=== PATIENT | female | born 1995 | race Caucasian/White ===

== ENCOUNTER 2017-10-29 01:46 | Emergency (ER) | payer OTHER ==
[~2017-10-29] VITALS: Ht 167.6 cm; Wt 69.7 kg
[2017-10-29 01:50] VITALS: BP 141/70
--- NOTE | 2017-10-29 03:00 | ED.ADGEN ---
Past History Past Medical History: Seizure Past Surgical History: No Surgical History Alcohol Use: None Drug Use: None Adult General Chief Complaint Chief Complaint ".. I guess I had a break through seizure...I have not drank for a while .... but my grand mother has fatal brain cancer... So I drank tonight and that use it makes they have seizures sometimes..".. " I sometimes have seizures even if I take my meds right... and I also had a fight with my boyfriend.. so I had drank about 7 beers..." HPI HPI Patient is a 22 year old female who presents with above hx and complaints chronic clonic seizure.. Duration of seizure is unknown. She has been compliant with her meds of Oxcarbazepine 60 mg bid, Lamotrigine 300 mg bid, and Onf1 15 mg bid. Pt. denies any trauma, travel, fever, specific ill contacts or recent changes in meds. Patient has had intermittent tonic-clonic seizures since age 7 after a spider bite and then again age 10 when she developed encephalitis. . She states she does have a somewhat typical migraine headache currently. Patient also states she has headaches after her tonic-clonic seizures. Review of Systems Review of Systems Constitutional: Denies fever or chills [] Eyes: Denies change in visual acuity, redness, or eye pain [] HENT: Denies nasal congestion or sore throat [] Respiratory: Denies cough or shortness of breath [] Cardiovascular: No additional information not addressed in HPI [] GI: Denies abdominal pain, nausea, vomiting, bloody stools or diarrhea [] : Denies dysuria or hematuria [] Musculoskeletal: Denies back pain or joint pain [] Integument: Denies rash or skin lesions [] Neurologic: Complaints of headache. Denies, focal weakness or sensory changes [ ] Hx of seizure Endocrine: Denies polyuria or polydipsia [] All other systems were reviewed and found to be within normal limits, except as documented in this note. Family History Family History Noncontributory Current Medications Current Medications Current Medications Medications (Trade) Dose Ordered Sig/Jamie Start Time Stop Time Status Last Admin Dose Admin Folic Acid (FOLIC ACID SYRINGE for ER) 5 mg STK-MED ONCE 10/29/17 04:06 10/29/17 04:07 DC Lorazepam (Ativan) 2 mg 1X ONCE 10/29/17 03:45 10/29/17 03:46 DC Multivitamins/ Minerals (Infuvite Adult) 10 ml STK-MED ONCE 10/29/17 04:06 10/29/17 04:07 DC Multivitamins/ Minerals 10 ml/ Folic Acid 1 mg/ Thiamine HCl 100 mg/Lactated Ringer's 1,011.1 ml @ 1,000 mls/ hr 1X ONCE 10/29/17 03:45 10/29/17 04:45 Thiamine HCl 200 mg STK-MED ONCE 10/29/17 04:05 10/29/17 04:06 DC See nursing for home medications Allergies Allergies Allergies Coded Allergies Type Severity Reaction Last Updated Verified No Known Drug Allergies 12/31/15 No Physical Exam Physical Exam Constitutional: Well developed, well nourished, no acute distress, intoxicated in appearance. [] HENT: Normocephalic, atraumatic, bilateral external ears normal, oropharynx moist, no oral exudates, nose normal. Scar on forehead and lower lip Eyes: PERRLA, EOMI, conjunctiva normal, no discharge. [] Neck: Normal range of motion, no tenderness, supple, no stridor. [] Cardiovascular: Tachycardia Heart rate regular rhythm, no murmur [] Lungs & Thorax: Bilateral breath sounds equal at apexes with scattered wheezes on auscultation [] Abdomen: Bowel sounds normal, soft, no tenderness, no masses, no pulsatile masses. [] Skin: Warm, dry, no erythema, no rash. [] Back: No tenderness, no CVA tenderness. [] Extremities: No tenderness, no cyanosis, no clubbing, ROM intact, no edema. [] Neurologic: Alert and oriented X 3, normal motor function, normal sensory function, no focal deficits noted. [DTRs +2 patella and brachial. Luggage Attendant equal. Ambulatory without problems. Psychologic: Affect normal, judgement normal, mood normal. [] EKG EKG My interpretation EKG shows a sinus rhythm at 94 bpm.[] Radiology/Procedures Radiology/Procedures No radiographs were completed patient left AGAINST MEDICAL ADVICE with family. [] Course & Med Decision Making Course & Med Decision Making Pertinent Labs and Imaging studies reviewed. (See chart for details). Patient elected for lab work and CT in the left before formal discharge. See nursing notes. Patient encouraged to not drink alcohol and take meds as directed. Follow-up primary care. Return if any concerns. Pt. left before formal discharge. [] Final Impression Final Impression 1. History of tonic clonic seizure 2. Alcohol abuse[] Problems: Dragon Disclaimer Dragon Disclaimer This electronic medical record was generated, in whole or in part, using a voice recognition dictation system. MARIAH ANAND MD Oct 29, 2017 03:00
[2017-10-29] MEDS ORDERED: MVI, ADULT NO.4 WITH VIT K 10 ML, FOLIC ACID SYRINGE for ER 1 MG, THIAMINE 100 MG in IV... IV ONE ×4 (03:45)
[2017-10-29] MEDS ORDERED: LORazepam 1 MG TABLET PO ONE (03:45)
[2017-10-29] MEDS ORDERED: THIAMINE 200 MG/2 ML VIAL. IV ONE (04:05)
[2017-10-29] MEDS ORDERED: FOLIC ACID 5 MG/ML SYRINGE for ER IV ONE (04:06)
[2017-10-29] MEDS ORDERED: MVI, ADULT NO.4 WITH VIT K 10 ML VIAL IV ONE (04:06)
--- NOTE | 2017-10-29 07:04 | EKG ---
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
== END 2017-10-29 04:30 | disposition home or self-care (01) ==
LOC: ER 01:46
DX: F10.10 Alcohol abuse, uncomplicated (principal); G43.909 Migraine, unspecified, not intractable, without status migrainosus
CPT/HCPCS: 93005; 99283; 99284

== ENCOUNTER 2018-04-02 20:54 | Emergency (ER) | payer OTHER ==
[~2018-04-02] VITALS: Ht 170.2 cm; Wt 68.0 kg
[2018-04-02 21:04] VITALS: BP 144/81
--- NOTE | 2018-04-02 21:38 | PHYS DOC ---
Past History Past Medical History: Migraines, Seizure Past Surgical History: Other Alcohol Use: Occasionally Drug Use: None Adult General Chief Complaint Chief Complaint: SEXUALLY TRANSMITTED DISEASE HPI HPI Patient is a 22 year old female who presents to the emergency department for medical evaluation of possible sexually transmitted disease exposure. Patient states that she was contacted by her ex-boyfriend and told that he thinks that he may have contracted a sexually transmitted infection from her. She states that he did not offer any specific information as to symptoms that he was having. The patient states that she feels at her baseline state of health and has not had any abnormal vaginal discharge or pelvic pain. The patient has decided to come to the emergency department in order to have a specimen drawn to see if she has a sexually transmitted infection. Patient is currently on her menstrual cycle. She states that she only wants to have a vaginal swab done and no other testing completed in the emergency department. Review of Systems Review of Systems Constitutional: Denies fever or chills [] Eyes: Denies change in visual acuity, redness, or eye pain [] HENT: Denies nasal congestion or sore throat [] Respiratory: Denies cough or shortness of breath [] Cardiovascular: Denies chest pain or edema[] GI: Denies abdominal pain, nausea, vomiting, bloody stools or diarrhea [] : Denies dysuria or hematuria [] Musculoskeletal: Denies back pain or joint pain [] Integument: Denies rash or skin lesions [] Neurologic: Denies headache, focal weakness or sensory changes [] All other systems were reviewed and found to be within normal limits, except as documented in this note. Allergies Allergies Allergies Coded Allergies Type Severity Reaction Last Updated Verified No Known Drug Allergies 12/31/15 No Physical Exam Physical Exam Constitutional: Well developed, well nourished, no acute distress, non-toxic appearance. [] HENT: Normocephalic, atraumatic, bilateral external ears normal, oropharynx moist, no oral exudates, nose normal. [] Eyes: PERRLA, EOMI, conjunctiva normal, no discharge. [] Neck: Normal range of motion, no tenderness, supple, no stridor. [] Cardiovascular:Heart rate regular rhythm, no murmur [] Lungs & Thorax: Bilateral breath sounds clear to auscultation [] Abdomen: Bowel sounds normal, soft, no tenderness, no masses, no pulsatile masses. Pelvic: Normal external exam, menstrual blood from cervical os present, no evidence of purulent discharge or inflammatory changes[] Skin: Warm, dry, no erythema, no rash. [] Back: No tenderness, no CVA tenderness. [] Extremities: No tenderness, no cyanosis, no clubbing, ROM intact, no edema. [] Neurologic: Alert and oriented X 3, normal motor function, normal sensory function, no focal deficits noted. [] Current Patient Data Vital Signs Vital signs reviewed and are stable Lab Results RUN DATE: 04/02/18 [facility] *LIVE* PAGE 1 RUN TIME: 2227 Specimen Inquiry PATIENT: LEIGHANN SPICER ACCT: [id number] LOC: [facility] U : [id number] AGE/SX: 22/F ROOM: REG : 04/02/[address]: PATRIC YORK MD : 1995 BED: DIS : STATUS: REG LOIS TLOC: SPEC #: [id number] RADHA: 04/02/18 STATUS: COMP REQ #: [id number] RECD: 04/02/18 [facility] DR: PATRIC YORK MD SOURCE: VAGINAL ENTR: 04/02/18 [facility] DR: ISABELLE BANKS MD [facility]: ORDERED: WET PREP COMMENTS: Has specimen been collected/obtained? Y Procedure Result WET PREP Final YEAST NONE SEEN TRICHOMONAS NONE SEEN CLUE CELLS NONE SEEN WBCS OCCASIONAL RBCS MANY SQUAMOUS EPS OCCASIONAL EKG EKG Not performed[] Radiology/Procedures Radiology/Procedures Not performed[] Course & Med Decision Making Course & Med Decision Making Pertinent Labs and Imaging studies reviewed. (See chart for details) Wet prep showed no specific findings for sexually transmitted infection. Gonorrhea and chlamydia cultures are pending. Advised patient to follow up with cultures in the next 2-3 days to ensure there result. I did inform the patient that she would be called with any positive test results and instructed on further care at that time. I have low suspicion based off exam and based off of lack of symptoms of patient has a sexually transmitted infection, thus treatment was deferred to results of testing. Advised return to emergency department for any worsening symptoms. Patient was understanding and agreement with treatment plan.[] Dragon Disclaimer Dragon Disclaimer This electronic medical record was generated, in whole or in part, using a voice recognition dictation system. Departure Departure: Impression: Primary Impression: Visit for screening for infections w/predomly sexual mode transmission Disposition: HOME, SELF-CARE Condition: IMPROVED Referrals: ISABELLE BANKS MD (PCP) Patient Instructions: Sexually Transmitted Disease, [id number] Additional Instructions: Your preliminary screening results showed no evidence of a sexually transmitted infection. Your gonorrhea and chlamydia culture will take approximately 2-3 days to result. Please follow up with these results at that time to ensure that they are negative. Return to the emergency department if he developed any severe symptoms including fever, vomiting, severe pelvic pain, or any other worrisome symptoms. PATRIC YORK MD Apr 02, 2018 21:38
[2018-04-04 15:08] LABS: CHLAMYDIA PROBE Negative (Negative)
== END 2018-04-02 22:52 | disposition home or self-care (01) ==
LOC: ER 20:54
DX: Z11.3 Encounter for screening for infections with a predominantly sexual mode of transmission (principal); G43.909 Migraine, unspecified, not intractable, without status migrainosus
CPT/HCPCS: 36415; 87491; 87591; 99284; Q0111

== ENCOUNTER 2019-06-18 22:29 | Emergency (ER) | payer OTHER ==
[~2019-06-18] VITALS: Ht 170.2 cm; Wt 69.7 kg
[2019-06-18 22:47] VITALS: BP 137/78
--- NOTE | 2019-06-18 23:40 | PHYS DOC ---
Past History Past Medical History: Seizure Past Surgical History: Other Alcohol Use: Occasionally Drug Use: None Adult General Chief Complaint Chief Complaint: CHEST PAIN HPI HPI Patient is a 24 year old female who presents with complaint of left-sided chest wall pain. Patient states that she is having pain near her nerve stimulator site. States that this was placed 2 years ago for treatment of her seizure disorder. 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 Denies any radiation of pain. Notes that it worsens with movement. She states that she was told that she had pain in this area that she should come to the emergency department for evaluation. She denies shortness of breath, fever, or vomiting currently. States that she took ibuprofen earlier this evening with no significant relief. Review of Systems Review of Systems Constitutional: Denies fever or chills [] Eyes: Denies change in visual acuity, redness, or eye pain [] HENT: Denies nasal congestion or sore throat [] Respiratory: Denies cough or shortness of breath [] Cardiovascular: Chest pain[] GI: Denies abdominal pain, nausea, vomiting, bloody stools or diarrhea [] : Denies dysuria or hematuria [] Musculoskeletal: Denies back pain or joint pain [] Integument: Denies rash or skin lesions [] Neurologic: Denies headache, focal weakness or sensory changes [] All other systems were reviewed and found to be within normal limits, except as documented in this note. Allergies Allergies Allergies Coded Allergies Type Severity Reaction Last Updated Verified No Known Drug Allergies 12/31/15 No Physical Exam Physical Exam Constitutional: Alert, afebrile, no acute distress, vital signs stable. [] HENT: Normocephalic, atraumatic, bilateral external ears normal, oropharynx moist, no oral exudates, nose normal. [] Eyes: PERRLA, EOMI, conjunctiva normal, no discharge. [] Neck: Normal range of motion, no tenderness, supple, no stridor. [] Cardiovascular:Heart rate regular rhythm, no murmur [] Lungs & Thorax: Tenderness to palpation near the insertion site of left chest wall nerve stimulator, no palpable muscle spasm, Bilateral breath sounds clear to auscultation [] Abdomen: Bowel sounds normal, soft, no tenderness, no masses, no pulsatile masses. [] Skin: Warm, dry, no erythema, no rash. [] Back: No tenderness, no CVA tenderness. [] Extremities: No tenderness, no cyanosis, no clubbing, ROM intact, no edema. [] Neurologic: Alert and oriented X 3, normal motor function, normal sensory function, no focal deficits noted. [] Current Patient Data Vital Signs Vital Signs Date Time Temp Pulse Resp B/P (MAP) Pulse Ox O2 Delivery O2 Flow Rate FiO2 06/18/19 22:47 98.6 102 20 97 Room Air Lab Results Not performed EKG EKG Interpreted by me: Heart rate 101, sinus tachycardia, normal intervals, normal axis, no acute ST/T-wave abnormalities present[] Radiology/Procedures Radiology/Procedures Chest x-ray offered but declined by patient[] Course & Med Decision Making Course & Med Decision Making Pertinent Labs and Imaging studies reviewed. (See chart for details) Patient appears in no acute distress at this time. Due to concern for problems with nerve stimulator, I did offer patient a chest x-ray to ensure no significant displacement or sign of damage to leads. The patient however stated that she didn't wish to have a chest x-ray done and would rather follow-up with her doctor tomorrow to have this further evaluated. Patient aware of Limited exam to determine the presence or absence of a significant problem with her nerve stimulator and stated that she still does not wish to have this evaluated. As patient appears stable and is in otherwise no significant distress, have agreed to discharge patient with recommended follow-up tomorrow with primary doctor for reevaluation. Advised return to the emergency department for any worsening symptoms. Patient was understanding and in agreement with treatment plan. Dragon Disclaimer Dragon Disclaimer This electronic medical record was generated, in whole or in part, using a voice recognition dictation system. Departure Departure: Impression: Primary Impression: Chest wall pain Disposition: HOME, SELF-CARE Condition: STABLE Referrals: ISABELLE BANKS MD (PCP) Patient Instructions: Chest Wall Pain Additional Instructions: Follow-up with your doctor tomorrow as scheduled. Return to the emergency department for any worsening symptoms. PATRIC YORK MD Jun 18, 2019 23:40
--- NOTE | 2019-06-19 02:23 | EKG ---
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
== END 2019-06-18 23:44 | disposition home or self-care (01) ==
LOC: ER 22:29
DX: R07.89 Other chest pain (principal); G40.909 Epilepsy, unspecified, not intractable, without status epilepticus
CPT/HCPCS: 93005; 99283

== ENCOUNTER 2020-09-22 16:45 | Emergency (ER) | payer OTHER ==
[~2020-09-22] VITALS: Ht 170.2 cm; Wt 73.9 kg
[2020-09-22] MEDS ORDERED: IV NORMAL SALINE 1,000ML 1,000 ML IV SCH (17:15)
[2020-09-22 17:20] VITALS: BP 126/72
--- NOTE | 2020-09-22 17:20 | PHYS DOC ---
Past History Past Medical History: Seizure Past Surgical History: Tonsillectomy, Other Additional Past Surgical Histo: cardio neuro implant for seizure disorder Alcohol Use: None Drug Use: None General Adult EDM: Chief Complaint: VAGINAL BLEEDING HPI: HPI: This is a pleasant 25-year-old -0-1-0 who presents to the emergency department today with vaginal bleeding in and mild suprapubic abdominal cramping. Her symptoms started this morning. She is unsure of her blood type. She does have a seizure disorder for which she takes seizure med ications and follows with Dr. Dunn. The pain is nonradiating intermittent and without alleviating factors. She denies vomiting but has had morning sickness over the past few weeks. Review of systems is negative for chest pain shortness of breath vomiting fevers chills. All other review of systems negative. ED course: 25-year-old female presenting to the emergency department today with a vaginal bleeding and . Blood work ordered along with ultrasound and urine testing. Patient was signed out to the oncoming physician at 6 PM with plans to follow-up on blood work and imaging. Current Medications: Current Meds: Current Medications Medications (Trade) Dose Ordered Sig/Jamie Start Time Stop Time Status Last Admin Dose Admin Sodium Chloride 1,000 ml @ 1,000 mls/hr Q1H 09/22/20 17:15 09/22/20 18:14 Allergies: Allergies: Allergies Coded Allergies Type Severity Reaction Last Updated Verified No Known Drug Allergies 09/22/20 No Physical Exam: PE: Constitutional: Well developed, well nourished, no acute distress, non-toxic appearance. [] HENT: Normocephalic, atraumatic, bilateral external ears normal, oropharynx moist, no oral exudates, nose normal. [] Eyes: PERRLA, EOMI, conjunctiva normal, no discharge. [] Neck: Normal range of motion, no tenderness, supple, no stridor. [] Cardiovascular:Heart rate regular rhythm, no murmur [] Lungs & Thorax: Bilateral breath sounds clear to auscultation [] Abdomen: Bowel sounds normal, soft, no tenderness, no masses, no pulsatile masses. No rebound tenderness or guarding. Negative Ciara's point. Negative Brown sign. Skin: Warm, dry, no erythema, no rash. [] Back: No tenderness, no CVA tenderness. [] Extremities: No tenderness, no cyanosis, no clubbing, ROM intact, no edema. [] Neurologic: Alert and oriented X 3, normal motor function, normal sensory function, no focal deficits noted. [] Psychologic: Affect normal, judgement normal, mood normal. [] EKG: EKG: [] Radiology/Procedures: Radiology/Procedures: [] Heart Score: Risk Factors: Risk Factors: DM, Current or recent (<one month) smoker, HTN, HLP, family history of CAD, obesity. Risk Scores: Score 0 - 3: 2.5% MACE over next 6 weeks - Discharge Home Score 4 - 6: 20.3% MACE over next 6 weeks - Admit for Clinical Observation Score 7 - 10: 72.7% MACE over next 6 weeks - Early Invasive Strategies Course & Med Decision Making: Course & Med Decision Making Pertinent Labs and Imaging studies reviewed. (See chart for details) [] Dragon Disclaimer: Dragon Disclaimer: This electronic medical record was generated, in whole or in part, using a voice recognition dictation system. Departure Departure: Impression: Primary Impression: Vaginal bleeding Referrals: ISABELLE BANKS MD (PCP) BISI SR MD Sep 22, 2020 17:20
[2020-09-22 18:08] LABS: BASO % 0 % (0-3); EOS # 0.1 x10^3/uL (0.0-0.7); EOS % 1 % (0-3); HEMATOCRIT 43.8 % (36.0-47.0); HEMOGLOBIN 14.8 g/dL (12.0-15.5); LYMPH # 2.1 x10^3/uL (1.0-4.8); LYMPH % 19 % (24-48); MEAN CORPUSCULAR HEMOGLOBIN 31 pg (25-35); MEAN CORPUSCULAR HGB CONC 34 g/dL (31-37); MEAN CORPUSCULAR VOLUME 91 fL (79-100); MONO # 0.6 x10^3/uL (0.0-1.1); MONO % 6 % (0-9); NEUT # 8.1 x10^3uL (1.8-7.7); NEUT % 74 % (31-73); PLATELET COUNT 277 x10^3/uL (140-400); RED BLOOD COUNT 4.84 x10^6/uL (3.50-5.40); RED CELL DISTRIBUTION WIDTH 12.5 % (11.5-14.5); WHITE BLOOD COUNT 10.9 x10^3/uL (4.0-11.0)
[2020-09-22 18:14] LABS: CALCIUM 8.9 mg/dL (8.5-10.1); CREATININE 0.7 mg/dL (0.6-1.0); GFR 102.8; POTASSIUM 3.3 mmol/L (3.5-5.1)
[2020-09-22 18:21] LABS: DIRECT BILIRUBIN 0.1 mg/dL (0.0-0.2); TOTAL BILIRUBIN 0.4 mg/dL (0.2-1.0); TOTAL PROTEIN 7.8 g/dL (6.4-8.2)
--- NOTE | 2020-09-22 18:48 | RAD ---
Exam: Ultrasound OB less than 14 weeks Indication: Vaginal bleeding and Technique: Real-time grayscale and color Doppler images of the pelvis were obtained by the department chief pilot. Comparisons: None FINDINGS: Uterus measures 10.1 x 6.6 x 5.5 cm. Within the endometrium there is a twin . Chorionic peak sign is noted, indicative of the chorionic twin There are 2 poles. Fetus a measures 0.9 cm correlating with 7 weeks 0 days gestation. heart rate measured at 120 bpm Fetus B measures 1.1 cm corresponding to 7 weeks 2 days gestation. heart rate measured at 127 b pm Right ovary is not seen. Left ovary measures 2.2 x 1.9 x 1.8 cm. Vascular flow identified within the left ovary. No free fluid in the pelvis. IMPRESSION: 1. Live Dichorionic twin of 7 weeks 3 days by LMP with concordant ultrasound. 2. Dedicated survey is recommended at 18-20 weeks gestation Electronically signed by: Katelyn Cadet MD (09/22/2020 6:46 PM) BUTCH
[2020-09-22 19:07] LABS: BILIRUBIN,URINE NEG (NEG); CLARITY,URINE CLOUDY; COLOR,URINE YELLOW; GLUCOSE,URINE NEG (NEG)
[2020-09-22 19:08] LABS: BACTERIA,URINE MANY /HPF (0-FEW); NITRITE,URINE POS (NEG); SQUAMOUS EPITHELIAL CELL,UR MANY /LPF; UROBILINOGEN,URINE 0.2 mg/dL (0.2 mg/dL)
[2020-09-22] MEDS ORDERED: CEPH750C9 PO (19:48)
== END 2020-09-22 19:53 | disposition home or self-care (01) ==
LOC: ER 16:45
DX: O20.0 Threatened abortion (principal); R10.30 Lower abdominal pain, unspecified; O99.281 Endocrine, nutritional and metabolic diseases complicating pregnancy, first trimester; E87.6 Hypokalemia; O99.351 Diseases of the nervous system complicating pregnancy, first trimester; G40.909 Epilepsy, unspecified, not intractable, without status epilepticus; Z3A.01 Less than 8 weeks gestation of pregnancy
CPT/HCPCS: 36415; 76801; 76817; 80048; 80076; 81001; 81025; 84702; 85025; 86900; 86901; 87086; 96360; 99284; J7030

== ENCOUNTER 2021-01-14 11:31 | Emergency (ER) | payer OTHER ==
[~2021-01-14] VITALS: Ht 170.2 cm; Wt 76.0 kg
[~2021-01-14 11:31] MED LIST: CEPH750C9 PO
[2021-01-14 11:51] VITALS: BP 129/81
[2021-01-14] MEDS ORDERED: IV NORMAL SALINE 1,000ML 1,000 ML IV ONE (12:00)
[2021-01-14 12:13] LABS: BASO % 0 % (0-3); EOS # 0.1 x10^3/uL (0.0-0.7); EOS % 1 % (0-3); HEMATOCRIT 33.8 % (36.0-47.0); HEMOGLOBIN 11.5 g/dL (12.0-15.5); LYMPH # 2.1 x10^3/uL (1.0-4.8); LYMPH % 16 % (24-48); MEAN CORPUSCULAR HEMOGLOBIN 31 pg (25-35); MEAN CORPUSCULAR HGB CONC 34 g/dL (31-37); MEAN CORPUSCULAR VOLUME 89 fL (79-100); MONO # 0.9 x10^3/uL (0.0-1.1); MONO % 6 % (0-9); NEUT # 10.6 x10^3uL (1.8-7.7); NEUT % 77 % (31-73); PLATELET COUNT 260 x10^3/uL (140-400); RED BLOOD COUNT 3.78 x10^6/uL (3.50-5.40); RED CELL DISTRIBUTION WIDTH 13.3 % (11.5-14.5); WHITE BLOOD COUNT 13.8 x10^3/uL (4.0-11.0)
[2021-01-14 12:24] LABS: CALCIUM 8.8 mg/dL (8.5-10.1); CREATININE 0.7 mg/dL (0.6-1.0); GFR 102.8; POTASSIUM 3.9 mmol/L (3.5-5.1)
[2021-01-14 12:25] LABS: BILIRUBIN,URINE NEG (NEG); CLARITY,URINE CLOUDY; COLOR,URINE YELLOW; GLUCOSE,URINE NEG (NEG); NITRITE,URINE POS (NEG); UROBILINOGEN,URINE 0.2 mg/dL (0.2 mg/dL)
[2021-01-14 12:26] LABS: BACTERIA,URINE MOD /HPF (0-FEW); RBC,URINE RARE /HPF (0-2); SQUAMOUS EPITHELIAL CELL,UR FEW /LPF
--- NOTE | 2021-01-14 12:29 | PHYS DOC ---
Past History Past Medical History: Seizure Past Surgical History: Tonsillectomy, Other Additional Past Surgical Histo: cardio neuro implant for seizure disorder Alcohol Use: None Drug Use: None General Adult EDM: Chief Complaint: SEIZURE HPI: HPI: 25-year-old female presents after seizure at home. Patient has known epilepsy. There were no witnesses. She woke up on the floor and feels that she likely had a grand mal seizure. She is sore all over. She felt a bit out of it when she first woke up. The patient is on seizure medications. Her last seizure was 6 months ago. She is 23 weeks . The patient is concerned about her . She denies history of hypertension in . She has no history of gestational diabetes. Denies fever or chills. She was feeling well prior to this episode. Review of Systems: Review of Systems: Constitutional: Generalized body aches. Denies fever or chills Eyes: Denies change in visual acuity HENT: Denies nasal congestion or sore throat Respiratory: Denies cough or shortness of breath Cardiovascular: Denies chest pain or edema GI: Denies abdominal pain, nausea, vomiting, bloody stools or diarrhea : Denies dysuria Musculoskeletal: Denies back pain or joint pain Integument: Denies rash Neurologic: Seizure. Denies headache, focal weakness or sensory changes Endocrine: Denies polyuria or polydipsia Lymphatic: Denies swollen glands Psychiatric: Denies depression or anxiety Current Medications: Current Meds: Current Medications Medications (Trade) Dose Ordered Sig/Jamie Start Time Stop Time Status Last Admin Dose Admin Sodium Chloride 1,000 ml @ 1,000 mls/hr 1X ONCE 01/14/21 12:00 01/14/21 12:59 Allergies: Allergies: Allergies Coded Allergies Type Severity Reaction Last Updated Verified No Known Drug Allergies 09/22/20 No Physical Exam: PE: Constitutional: Well developed, well nourished, no acute distress, non-toxic appearance. [] HENT: Normocephalic, atraumatic, bilateral external ears normal, oropharynx moist, no oral exudates, nose normal. [] Eyes: PERRLA, EOMI, conjunctiva normal, no discharge. [] Neck: Normal range of motion, no tenderness, supple, no stridor. [] Cardiovascular:Heart rate regular rhythm, no murmur [] Lungs & Thorax: Bilateral breath sounds clear to auscultation [] Abdomen: Bowel sounds normal, gravid uterus, no tenderness, no masses, no pulsatile masses. [] Skin: Warm, dry, no erythema, no rash. [] Back: No tenderness, no CVA tenderness. [] Extremities: No tenderness, no cyanosis, no clubbing, ROM intact, no edema. [] Neurologic: Alert and oriented X 3, normal motor function, normal sensory function, no focal deficits noted. [] Psychologic: Affect normal, judgement normal, mood normal. [] Current Patient Data: Labs: Laboratory Tests Test 01/14/21 11:44 White Blood Count 13.8 x10^3/uL (4.0-11.0) H Red Blood Count 3.78 x10^6/uL (3.50-5.40) Hemoglobin 11.5 g/dL (12.0-15.5) L Hematocrit 33.8 % (36.0-47.0) L Mean Corpuscular Volume 89 fL (79-100) Mean Corpuscular Hemoglobin 31 pg (25-35) Mean Corpuscular Hemoglobin Concent 34 g/dL (31-37) Red Cell Distribution Width 13.3 % (11.5-14.5) Platelet Count 260 x10^3/uL (140-400) Neutrophils (%) (Auto) 77 % (31-73) H Lymphocytes (%) (Auto) 16 % (24-48) L Monocytes (%) (Auto) 6 % (0-9) Eosinophils (%) (Auto) 1 % (0-3) Basophils (%) (Auto) 0 % (0-3) Neutrophils # (Auto) 10.6 x10^3uL (1.8-7.7) H Lymphocytes # (Auto) 2.1 x10^3/uL (1.0-4.8) Monocytes # (Auto) 0.9 x10^3/uL (0.0-1.1) Eosinophils # (Auto) 0.1 x10^3/uL (0.0-0.7) Basophils # (Auto) 0.0 x10^3/uL (0.0-0.2) EKG: EKG: [] Radiology/Procedures: Radiology/Procedures: [] Impressions: EXAM: OB ULTRASOUND, > 14 WEEKS HISTORY: Seizure and collapse. COMPARISON: None. TECHNIQUE: Multiple grayscale images, color Doppler, and M-mode images of the uterus are obtained. FINDINGS: There is a twin monochorionic diamniotic intrauterine gestation. The cervix is closed and measures 3.7 cm in length. Twin A demonstrates a heart rate of 135 bpm and is in cephalic presentation on the maternal left. The placenta is anterior in location without evidence of kade centa previa. There is a normal amniotic fluid pocket of 4.6 cm. Twin A biometrical data: BPD = 5.7 cm for 23 weeks 3 days. HC = 21.6 cm for 23 weeks 4 days. AC = 17.3 cm for 22 weeks 1 days. FL = 4.0 cm for 23 weeks 0 days. HC/AC ratio = 1.3. Overall, the estimated sonographic gestational age for twin A is 23 weeks and 0 days for an estimated date of delivery of 05/13/2021. The estimated date of delivery provided by the last menstrual period is 05/08/2021. Estimated weight is 527 grams. Twin B demonstrates a heart rate of 141 bpm and is in cephalic presentation on the maternal right. The placenta is anterior in location without evidence of placenta previa. There is a normal amniotic fluid pocket of 5.0 cm. Twin B biometrical data: BPD = 5.6 cm for 23 weeks 1 days. HC = 20.5 cm for 22 weeks 4 days. AC = 18.5 cm for 23 weeks 2 days. FL = 3.9 cm for 22 weeks 5 days. HC/AC ratio = 1.1. Overall, the estimated sonographic gestational age for twin B is 23 weeks and 0 days for an estimated date of delivery of 05/13/2021. The estimated date of delivery provided by the last menstrual period is 05/08/2021. Estimated weight is 557 grams. IMPRESSION: 1. Twin intrauterine gestation with normal heart rates and estimated gestational ages of 23 weeks and 0 days. 2. No acute sonographic finding. 3. Note is made that a formal survey was not performed at the time of the exam. Electronically signed by: Shruthi Chavez MD (01/14/2021 1:49 PM) [id number] DICTATED AND SIGNED BY: SHRUTHI CHAVEZ MD DATE: 01/14/21 1338 CC: ADALID BUTTS DO; ISABELLE BANKS MD ~MTH0 0 Heart Score: C/O Chest Pain: N/A Risk Factors: Risk Factors: DM, Current or recent (<one month) smoker, HTN, HLP, family history of CAD, obesity. Risk Scores: Score 0 - 3: 2.5% MACE over next 6 weeks - Discharge Home Score 4 - 6: 20.3% MACE over next 6 weeks - Admit for Clinical Observation Score 7 - 10: 72.7% MACE over next 6 weeks - Early Invasive Strategies Course & Med Decision Making: Course & Med Decision Making Pertinent Labs and Imaging studies reviewed. (See chart for details) The patient is informed the nurse that she will likely have chlamydia in her urine. She has been treated for this at this time. The patient's labs are unremarkable except for slightly elevated white count. Her urine is positive for nitrate, but her chlamydia treatment should also cover UTI. Will not pre scribe any further antibiotics. The ultrasound shows twins with no complications. See official read for more details. I spoke with Dr. Keys, neurologist at [facility]. He has informed me the patient is supposed to be on lamotrigine 400 twice daily, Trileptal 900 twice daily, zonisamide 300 once daily. It turns out the patient is not currently on antibiotics so I will treat her UTI with Keflex. She will follow up with the neurologist to discuss her dosing after discharge. She is stable for discharge at this time. [] Dragon Disclaimer: Dragon Disclaimer: This electronic medical record was generated, in whole or in part, using a voice recognition dictation system. Departure Departure: Impression: Primary Impression: Seizure disorder Additional Impressions: Twin Qualified Codes: O30.043 - Twin , dichorionic/diamniotic, third trimester UTI (urinary tract infection) Disposition: HOME / SELF CARE / HOMELESS Condition: STABLE Referrals: ISABELLE BANKS MD (PCP) Patient Instructions: , Seizure, Adult Scripts Cephalexin (CEPHALEXIN) 500 Mg Capsule 1 CAP PO TID for uti for 5 Days, #15 CAP Prov: ADALID BUTTS DO 01/14/21 ADALID BUTTS DO January 14, 2021 12:29
[2021-01-14 12:30] LABS: ALBUMIN/GLOBULIN RATIO 0.8 (1.0-1.7); TOTAL BILIRUBIN 0.3 mg/dL (0.2-1.0); TOTAL PROTEIN 6.9 g/dL (6.4-8.2)
--- NOTE | 2021-01-14 13:51 | RAD ---
EXAM: OB ULTRASOUND, > 14 WEEKS HISTORY: Seizure and collapse. COMPARISON: None. TECHNIQUE: Multiple grayscale images, color Doppler, and M-mode images of the uterus are obtained. FINDINGS: There is a twin monochorionic diamniotic intrauterine gestation. The cervix is closed and measures 3. 7 cm in length. Twin A demonstrates a heart rate of 135 bpm and is in cephalic presentation on the maternal left. The placenta is anterior in location without evidence of placenta previa. There is a normal amniotic flu id pocket of 4.6 cm. Twin A biometrical data: BPD = 5.7 cm for 23 weeks 3 days. HC = 21.6 cm for 23 weeks 4 days. AC = 17.3 cm for 22 weeks 1 days. FL = 4.0 cm for 23 weeks 0 days. HC/AC ratio = 1.3. Overall, the estimated sonographic gestational age for twin A is 23 weeks and 0 days for an estimated date of delivery of 05/13/2021. The estimated date of delivery provided by the last menstrual period is 05/08/2021. Estimated weight is 527 grams. Twin B demonstrates a heart rate of 141 bpm and is in cephalic presentation on the maternal right. Th e placenta is anterior in location without evidence of placenta previa. There is a normal amniotic fl uid pocket of 5.0 cm. Twin B biometrical data: BPD = 5.6 cm for 23 weeks 1 days. HC = 20.5 cm for 22 weeks 4 days. AC = 18.5 cm for 23 weeks 2 days. FL = 3.9 cm for 22 weeks 5 days. HC/AC ratio = 1.1. Overall, the estimated sonographic gestational age for twin B is 23 weeks and 0 days for an estimated date of delivery of 05/13/2021. The estimated date of delivery provided by the last menstrual period is 05/08/2021. Estimated weight is 557 grams. IMPRESSION: 1. Twin intrauterine gestation with normal heart rates and estimated gestational ages of 23 weeks and 0 days. 2. No acute sonographic finding. 3. Note is made that a formal survey was not performed at the time of the exam. Electronically signed by: Shruthi Chatterjee MD (01/14/2021 1:49 PM) [id number]
[2021-01-14] MEDS ORDERED: CEPH500C PO (15:08)
[2021-01-14] MEDS ORDERED: CEPHALEXIN 250 MG CAPSULE PO ONE (15:15)
== END 2021-01-14 15:15 | disposition home or self-care (01) ==
LOC: ER 11:31
DX: O99.352 Diseases of the nervous system complicating pregnancy, second trimester (principal); O23.42 Unspecified infection of urinary tract in pregnancy, second trimester; G40.909 Epilepsy, unspecified, not intractable, without status epilepticus; Z3A.23 23 weeks gestation of pregnancy
CPT/HCPCS: 36415; 76816; 80053; 81001; 85025; 87086; 96360; 99284; J7030; 87077; 87186